=== PATIENT | female | born 1995 | race Caucasian/White ===

== ENCOUNTER 2018-11-24 09:45 | Emergency (ER) | payer OTHER ==
[~2018-11-24] VITALS: Ht 157.5 cm; Wt 76.2 kg
[2018-11-24 09:59] VITALS: BP 142/82
--- NOTE | 2018-11-24 10:04 | NUR ---
PATIENT PRESENTS TO ED WITH c/o lower back pain radiating suprapubic x 6 days with burning pain upon voidiging denies vag dc SKIN IS PINK/WARM/DRY; AAOX4 WITH EVEN AND STEADY GAIT; LUNGS CLEAR BL; HR EVEN AND REGULAR; PT DENIES ANY FEVER, CP, SOB, OR COUGH AT THIS TIME; PATIENT STATES PAIN OF 6/10 AT THIS TIME; VSS; PATIENT POSITIONED FOR COMFORT; HOB ELEVATED; BEDRAILS UP X2; BED DOWN. ER MD MADE AWARE OF PT STATUS.
--- NOTE | 2018-11-24 10:06 | NUR ---
urine cup handed to pt for sample
[2018-11-24 10:25] VITALS: BP 116/74
--- NOTE | 2018-11-24 10:25 | NUR ---
Patient discharged with v/s stable. Written and verbal after care instructions given and explained. Patient alert, oriented and verbalized understanding of instructions. Ambulatory with steady gait. All questions addressed prior to discharge. ID band removed. Patient advised to follow up with PMD. Rx of Pyridium, Cephalexin given. Patient educated on indication of medication including possible reaction and side effects. Opportunity to ask questions provided and answered.
== END 2018-11-24 10:25 | disposition home or self-care (01) ==
LOC: MED 09:45
DX: N39.0 Urinary tract infection, site not specified (principal); R03.0 Elevated blood-pressure reading, without diagnosis of hypertension
CPT/HCPCS: 81002; 81025; 99283

== ENCOUNTER 2018-12-31 17:36 | Emergency (ER) | payer OTHER ==
[~2018-12-31] VITALS: Ht 157.5 cm; Wt 81.6 kg
[2018-12-31 17:40] VITALS: BP 148/123
--- NOTE | 2018-12-31 17:48 | NUR ---
PT AMBULATED TO ER BED 1
--- NOTE | 2018-12-31 17:51 | NUR ---
Isaias ochoa in [facility] - 12/31/18 at 1807 by REGINO PT TX TO ER BED 5
--- NOTE | 2018-12-31 18:15 | NUR ---
PT C/O INTERMITTENT RIGHT LOWER BACK PAIN FOR 1.5 MONTH. PT ALSO HAS NAUSEA AND BURNING URINATION FOR 3 DAYS. PT HAS BEEN CONSTIPATED FOR 2 DAYS; SKIN IS PINK/WARM/DRY; AAOX4 WITH EVEN AND STEADY GAIT; PT DENIES ANY FEVER, CP, SOB, OR COUGH AT THIS TIME; PATIENT STATES PAIN OF 7/10 AT THIS TIME; VSS; PATIENT POSITIONED FOR COMFORT; HOB ELEVATED; BEDRAILS UP X1; BED DOWN. ER MD MADE AWARE OF PT STATUS.
[2018-12-31 18:37] LABS: APPEARANCE,URINE CLEAR (CLEAR); BILIRUBIN,URINE NEGATIVE (NEGATIVE); BLOOD, URINE NEGATIVE (NEGATIVE); COLOR,URINE AMBER (YELLOW); LEUKOCYTE ESTERASE ,URINE NEGATIVE (NEGATIVE); NITRITE, URINE NEGATIVE (NEGATIVE); PH,URINE 6.5 (5.0-9.0); UGLUCOSE NEGATIVE (NEGATIVE)
--- NOTE | 2018-12-31 19:20 | NUR ---
RECEIVED REPORT FROM AM NURSE. PT LAYING IN BED, RR EVEN AND UNLABORED. VSS, REPORTS 7/10 PAIN AT THIS TIME. ALL NEEDS MET.
--- NOTE | 2018-12-31 19:20 | NUR ---
REPORT GIVEN TO KAREN MCKEON.
--- NOTE | 2018-12-31 19:50 | NUR ---
PT TAKEN TO CT
--- NOTE | 2018-12-31 20:05 | NUR ---
PT BACK FROM CT
[2018-12-31 21:35] VITALS: BP 128/81
== END 2018-12-31 21:35 | disposition home or self-care (01) ==
LOC: MED 17:36
DX: K59.00 Constipation, unspecified (principal)
CPT/HCPCS: 74176; 76856; 81003; 81025; 99284; Q0092

== ENCOUNTER 2020-03-01 20:00 | Observation (INO) | payer OTHER ==
[~2020-03-01] VITALS: Ht 160 cm; Wt 83.0 kg
[2020-03-01 20:20] VITALS: BP 127/62
[2020-03-01 21:17] LABS: APPEARANCE,URINE CLEAR (CLEAR); BILIRUBIN,URINE NEGATIVE (NEGATIVE); BLOOD, URINE NEGATIVE (NEGATIVE); COLOR,URINE YELLOW (YELLOW); LEUKOCYTE ESTERASE ,URINE NEGATIVE (NEGATIVE); NITRITE, URINE NEGATIVE (NEGATIVE); UGLUCOSE NEGATIVE (NEGATIVE)
== END 2020-03-01 22:50 | disposition home or self-care (01) ==
LOC: MLD 20:00
PROVIDERS: ADMIT Obstetrics & Gynecology; ATTEND Obstetrics & Gynecology
DX: O9A.212 Injury, poisoning and certain other consequences of external causes complicating pregnancy, second trimester (principal); O26.892 Other specified pregnancy related conditions, second trimester; R10.9 Unspecified abdominal pain; O99.352 Diseases of the nervous system complicating pregnancy, second trimester; G43.909 Migraine, unspecified, not intractable, without status migrainosus; Z3A.27 27 weeks gestation of pregnancy; V49.9XXA Car occupant (driver) (passenger) injured in unspecified traffic accident, initial encounter; Y93.89 Activity, other specified; Y92.410 Unspecified street and highway as the place of occurrence of the external cause
CPT/HCPCS: 76805; 81003; G0378; Q0092

== ENCOUNTER 2020-08-24 13:06 | Emergency (ER) | payer OTHER ==
[~2020-08-24] VITALS: Ht 157.5 cm; Wt 76.2 kg
[2020-08-24 13:16] VITALS: BP 130/80
--- NOTE | 2020-08-24 13:26 | NUR ---
PATIENT AMBULATED TO BED 8.
--- NOTE | 2020-08-24 13:51 | NUR ---
25YO F C/O LEFT CHEST PAIN RADIATING TO L SHOULDER X 1 DAY. PAIN 5/10, PRESSURE-LIKE, LASTING 15-30MINS. DENIES FEVER, COUGH. UPON ASSESSMENT, VSS. HEART RATE NORMAL REGULAR RHYTHM. CLEAR BREATH SOUNDS. NO EDEMA NOTED. PT POSITIONED IN BED COMFORTABLY WITH 2 SIDERAILS UP. ERMD MADE AWARE OF PT STATUS. COVID TESTED POSTIVE 2 MONTHS AGO & NEGATIVE 06/20/20. LMP 2 WEEKS AGO. PMH: ANEMIA AFTER GIVING 3 MONTHS AGO; GESTATIONAL DIABETES MEDS: NONE NKA
[2020-08-24 14:48] LABS: BASOPHILS % (AUTO) 0.4 % (0.0-2.0); EOSINOPHILS # (AUTO) 0.1 K/uL (0-0.4); EOSINOPHILS % (AUTO) 1.1 % (0.0-4.0); HEMATOCRIT 40.4 % (36-48); HEMOGLOBIN 13.8 g/dL (12.0-16.0); LYMPHOCYTES # (AUTO) 1.8 K/uL (2.5-16.5); LYMPHOCYTES % (AUTO) 22.4 % (20.5-51.1); MEAN CORPUSCULAR HEMOGLOBIN 29 pg (27-31); MEAN CORPUSCULAR HGB CONC 34 g/dL (33-37); MEAN CORPUSCULAR VOLUME 84.9 fL (80-94); MONOCYTES # (AUTO) 0.5 K/uL (0.8-1.0); MONOCYTES % (AUTO) 6.6 % (1.7-9.3); NEUTROPHILS # (AUTO) 5.6 K/uL (1.8-7.7); NEUTROPHILS % (AUTO) 69.5 % (42.2-75.2); PLATELET COUNT (AUTO) 371 K/uL (140-450); RED BLOOD CELL COUNT(AUTO) 4.76 MIL/uL (4.20-5.40); RED CELL DISTRIBUTION WIDTH 14.6 % (11.6-13.7); WHITE BLOOD COUNT (AUTO) 8.1 K/uL (4.8-10.8)
[2020-08-24 15:18] LABS: ALBUMIN 4.3 g/dL (3.4-5.0); ANION GAP 12.6 (8-16); CARBON DIOXIDE 26.6 mmol/L (21-32); CREATININE 0.8 mg/dL (0.6-1.3); POTASSIUM 4.2 mmol/L (3.5-5.1); THYROID STIMULATING HORMONE 3.71 uIU/mL (0.34-3.74); TOTAL BILIRUBIN 0.3 mg/dL (0.0-1.0)
[2020-08-24 15:31] VITALS: BP 130/80
--- NOTE | 2020-08-24 15:31 | NUR ---
Patient discharged with v/s stable. Written and verbal after care instructions given and explained. Patient verbalized understanding. Ambulatory with steady gait. All questions addressed prior to discharge. Advised to follow up with PMD.
== END 2020-08-24 15:31 | disposition home or self-care (01) ==
LOC: MED 13:06
DX: R07.89 Other chest pain (principal); D64.9 Anemia, unspecified
CPT/HCPCS: 36415; 80053; 84443; 84484; 85025; 93005; 99284

== ENCOUNTER 2020-12-18 16:09 | Emergency (ER) | payer OTHER ==
[~2020-12-18] VITALS: Ht 160 cm; Wt 81.2 kg
[2020-12-18 16:20] VITALS: BP 148/81
--- NOTE | 2020-12-18 17:09 | NUR ---
PHLEB at bedside for blood draw.
--- NOTE | 2020-12-18 17:09 | NUR ---
Patient ambulated to bed 5. RN evaluating the patient at bedside.
--- NOTE | 2020-12-18 17:15 | NUR ---
25 Y/O F BIB SELF FROM HOME, C/O SYNCOPE EPISODE THAT HAPPENED TODAY AROUND 1200. PT STATES SHE WAS TALKING WITH HER AUNT AND FELT SUDDENLY WEAK AND FATIGUED LIKE SHE WAS GOING TO PASS OUT, WARNED AUNT, AUNT PUT ICE PACK ON HER BACK, PT DOES NOT REMEMBER ANYTHING ELSE. PT ALSO C/O NAUSEA. DENIES PAIN AT THIS TIME. NO HEAD INJURY, FALL OR MOUTH TRAUMA. PMH: GESTATIONAL DIABETES, ANEMIA NKA MED: BIRTHCONTROL
[2020-12-18 17:21] LABS: BASOPHILS % (AUTO) 0.2 % (0.0-2.0); EOSINOPHILS % (AUTO) 0.3 % (0.0-4.0); HEMATOCRIT 44.2 % (36-48); HEMOGLOBIN 15.4 g/dL (12.0-16.0); LYMPHOCYTES # (AUTO) 1.5 K/uL (2.5-16.5); LYMPHOCYTES % (AUTO) 14.9 % (20.5-51.1); MEAN CORPUSCULAR HEMOGLOBIN 32 pg (27-31); MEAN CORPUSCULAR HGB CONC 35 g/dL (33-37); MEAN CORPUSCULAR VOLUME 91.2 fL (80-94); MONOCYTES # (AUTO) 0.3 K/uL (0.8-1.0); NEUTROPHILS # (AUTO) 8.2 K/uL (1.8-7.7); NEUTROPHILS % (AUTO) 81.6 % (42.2-75.2); PLATELET COUNT (AUTO) 394 K/uL (140-450); RED BLOOD CELL COUNT(AUTO) 4.85 MIL/uL (4.20-5.40); RED CELL DISTRIBUTION WIDTH 13.5 % (11.6-13.7); WHITE BLOOD COUNT (AUTO) 10.1 K/uL (4.8-10.8)
[2020-12-18 18:00] LABS: ALBUMIN 4.7 g/dL (3.4-5.0); ANION GAP 12.9 (8-16); CARBON DIOXIDE 25.8 mmol/L (21-32); CREATININE 0.7 mg/dL (0.6-1.3); POTASSIUM 3.7 mmol/L (3.5-5.1); THYROID STIMULATING HORMONE 3.14 uIU/mL (0.34-3.74); TOTAL BILIRUBIN 0.4 mg/dL (0.0-1.0)
[2020-12-18 18:15] VITALS: BP 125/71
== END 2020-12-18 18:16 | disposition home or self-care (01) ==
LOC: MED 16:09
DX: R55 Syncope and collapse (principal); R20.2 Paresthesia of skin; D64.9 Anemia, unspecified
CPT/HCPCS: 36415; 71045; 80053; 84443; 84484; 84702; 85025; 93005; 99285

== ENCOUNTER 2021-05-23 16:12 | Emergency (ER) | payer OTHER ==
[~2021-05-23] VITALS: Ht 157.5 cm; Wt 81.6 kg
[2021-05-23 16:30] VITALS: BP 160/118
--- NOTE | 2021-05-23 16:58 | NUR ---
26 yo f c/o chest discomfort and sob radiating to neck since this am. also report intermittent headache adn tinnitus, right ear x 1 month. no meds taken. lung sounds clear. heart sounds heard, s1 and s2. 7/10 pressure pain. skin warm and dry. denies any recent fever or cough. pmh: none meds: none nka
--- NOTE | 2021-05-23 17:06 | NUR ---
XRAY AT BEDSIDE
--- NOTE | 2021-05-23 17:16 | NUR ---
PT AMBULATED TO RESTROOM, STEADY GAIT
[2021-05-23] MEDS ORDERED: NAPR-54 PO (17:52)
[2021-05-23 18:07] VITALS: BP 128/71
== END 2021-05-23 18:07 | disposition home or self-care (01) ==
LOC: MED 16:12
DX: R07.9 Chest pain, unspecified (principal); R06.02 Shortness of breath
CPT/HCPCS: 71045; 81002; 81025; 93005; 99285; Q0092; 99283

== ENCOUNTER 2021-09-25 21:18 | Emergency (ER) | payer OTHER ==
[~2021-09-25] VITALS: Ht 160 cm; Wt 81.6 kg
[~2021-09-25 21:18] MED LIST: NAPR-54 PO
[2021-09-25 22:11] VITALS: BP 91/46
--- NOTE | 2021-09-25 22:17 | NUR ---
TO LOBBY FOLLOWING TRIAGE
[2021-09-25] MEDS ORDERED: FAMO-92 PO (23:06)
== END 2021-09-25 23:17 | disposition home or self-care (01) ==
LOC: MED 21:18
DX: K25.3 Acute gastric ulcer without hemorrhage or perforation (principal); Z79.899 Other long term (current) drug therapy
CPT/HCPCS: 99282

== ENCOUNTER 2022-04-02 20:52 | Emergency (ER) | payer OTHER ==
[~2022-04-02] VITALS: Ht 160 cm; Wt 83.5 kg
[~2022-04-02 20:52] MED LIST changes: +FAMO-92 PO
[2022-04-02 20:59] VITALS: BP 126/79
--- NOTE | 2022-04-02 21:01 | NUR ---
PT TO LOBBY.
--- NOTE | 2022-04-02 22:40 | NUR ---
PT TAKEN TO BED 12
--- NOTE | 2022-04-02 22:45 | NUR ---
Assume care of pt at this time by Nery JONES, report given by Hayley JONES, pt c/o left lower abd pain, non radiating, denies n/v/d, pt states she was constipated two days ago but took otc medication and had a BM today, pt placed on ct tech, denies any CP or SOB at present time.
[2022-04-02] MEDS ORDERED: KETOROLAC 30 MG/ML VIAL IM ONE (23:25)
[2022-04-02] MEDS ORDERED: HYDROcodone/APAP 5/325 MG 1 TAB TAB PO ONE (23:25)
[2022-04-02 23:26] LABS: APPEARANCE,URINE CLEAR (CLEAR); BILIRUBIN,URINE NEGATIVE (NEGATIVE); BLOOD, URINE NEGATIVE (NEGATIVE); COLOR,URINE YELLOW (YELLOW); LEUKOCYTE ESTERASE ,URINE NEGATIVE (NEGATIVE); NITRITE, URINE NEGATIVE (NEGATIVE); UGLUCOSE NEGATIVE (NEGATIVE)
[2022-04-02 23:30] LABS: BASOPHILS % (AUTO) 0.4 % (0.0-2.0); EOSINOPHILS # (AUTO) 0.2 K/uL (0-0.4); EOSINOPHILS % (AUTO) 2.2 % (0.0-4.0); HEMATOCRIT 41.2 % (36-48); HEMOGLOBIN 14.4 g/dL (12.0-16.0); LYMPHOCYTES # (AUTO) 3.4 K/uL (2.5-16.5); LYMPHOCYTES % (AUTO) 33.5 % (20.5-51.1); MEAN CORPUSCULAR HEMOGLOBIN 31 pg (27-31); MEAN CORPUSCULAR HGB CONC 35 g/dL (33-37); MEAN CORPUSCULAR VOLUME 87.4 fL (80-94); MONOCYTES % (AUTO) 9.7 % (1.7-9.3); NEUTROPHILS # (AUTO) 5.6 K/uL (1.8-7.7); NEUTROPHILS % (AUTO) 54.2 % (42.2-75.2); PLATELET COUNT (AUTO) 397 K/uL (140-450); RED BLOOD CELL COUNT(AUTO) 4.72 MIL/uL (4.20-5.40); RED CELL DISTRIBUTION WIDTH 13.1 % (11.6-13.7); WHITE BLOOD COUNT (AUTO) 10.2 K/uL (4.8-10.8)
[2022-04-02 23:46] LABS: ALBUMIN 3.8 g/dL (3.4-5.0); ANION GAP 13.7 (8-16); CARBON DIOXIDE 28.2 mmol/L (21-32); CREATININE 0.6 mg/dL (0.6-1.3); POTASSIUM 3.9 mmol/L (3.5-5.1); TOTAL BILIRUBIN 0.2 mg/dL (0.0-1.0)
--- NOTE | 2022-04-02 23:59 | NUR ---
Ultrasound at bedside.
[2022-04-03] MEDS ORDERED: NACL 0.9% 1,000 ML IV ONE (00:05)
[2022-04-03] MEDS ORDERED: ACET-10509 PO (02:47)
[2022-04-03] MEDS ORDERED: NAPR-54 PO (02:47)
[2022-04-03 03:00] VITALS: BP 126/71
--- NOTE | 2022-04-03 03:00 | NUR ---
Patient discharged with v/s stable. Written and verbal after care instructions given and explained. Patient alert, oriented and verbalized understanding of instructions. Ambulatory with steady gait. All questions addressed prior to discharge. ID band removed. Patient advised to follow up with PMD. Rx of TYLENOL AND NAPROSYN given. Patient educated on indication of medication including possible reaction and side effects. Opportunity to ask questions provided and answered.
== END 2022-04-03 03:00 | disposition home or self-care (01) ==
LOC: MED 20:52
DX: R10.9 Unspecified abdominal pain (principal); R30.0 Dysuria; R11.0 Nausea; Z79.899 Other long term (current) drug therapy
CPT/HCPCS: 36415; 76856; 80053; 81003; 81025; 85025; 93976; 96361; 96374; 99284; J1885; J7030

== ENCOUNTER 2022-06-11 13:55 | Emergency (ER) | payer OTHER ==
[~2022-06-11] VITALS: Ht 160 cm; Wt 82.6 kg
[~2022-06-11 13:55] MED LIST changes: +ACET-10509 PO
[2022-06-11 14:10] VITALS: BP 138/78
--- NOTE | 2022-06-11 14:17 | NUR ---
PT AMB TO BED 7.
--- NOTE | 2022-06-11 14:25 | NUR ---
27 y/o F BIB self from home c/o mid and left sided chest pain, pressureintermittent, radiating to left rib region. Patient states symptoms feel similar to anxiety episodes in the past. Reports acute onset this morning; Tylenol 0930 without relief to symptoms. 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 Denies recent drug, caffeine use, SOB, cough, fever, chills, nausea, vomiting, headache. Bed locked in lowest position, side rails x 1. PMH: anxiety Meds: Denies NKDA Addendum: 06/11/22 at 1450 by [facility] 27 y/o F BIB self from home c/o mid and left sided chest pain, pressureintermittent, radiating to left rib region. Patient states symptoms feel similar to anxiety episodes in the past. Reports acute onset this morning; Tylenol 0930 without relief to symptoms. 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 Denies recent drug, caffeine use, SOB, cough, fever, chills, nausea, vomiting, headache. Bed locked in lowest position, side rails x 1. PMH: anxiety Meds: sertraline 50mg NKDA
--- NOTE | 2022-06-11 14:30 | NUR ---
Pt transported to [facility] via WC
[2022-06-11] MEDS ORDERED: MECL-303 PO (14:32)
[2022-06-11] MEDS ORDERED: IBUP-2213 PO (14:32)
[2022-06-11] MEDS ORDERED: EMLAC TP (14:32)
--- NOTE | 2022-06-11 14:42 | NUR ---
Pt returned from RAD via WC.
--- NOTE | 2022-06-11 15:09 | NUR ---
Patient discharged with v/s stable. Written and verbal after care instructions given and explained for Acute Costrocondritis, Vertigo. Patient alert, oriented and verbalized understanding of instructions. Ambulatory with steady gait. All questions addressed prior to discharge. ID band removed. Patient advised to follow up with PMD. Rx of Ibuprofen, Meclizine, Lidocaine cream given. Patient educated on indication of medication including possible reaction and side effects. Opportunity to ask questions provided and answered. Copies of EKG, CXR, Work note given to pt.
== END 2022-06-11 15:09 | disposition home or self-care (01) ==
LOC: MED 13:55
DX: M94.0 Chondrocostal junction syndrome [Tietze] (principal); R42 Dizziness and giddiness; F41.9 Anxiety disorder, unspecified; Z79.899 Other long term (current) drug therapy
CPT/HCPCS: 71046; 93005; 99283

== ENCOUNTER 2022-08-01 19:10 | Emergency (ER) | payer OTHER ==
[~2022-08-01] VITALS: Ht 157.5 cm; Wt 83.5 kg
[~2022-08-01 19:10] MED LIST changes: +EMLAC TP; +IBUP-2213 PO; +MECL-303 PO
[2022-08-01 19:17] VITALS: BP 133/78
--- NOTE | 2022-08-01 19:40 | NUR ---
Urine sample collected and sent to lab.
[2022-08-01 19:51] LABS: BASOPHILS # (AUTO) 0.1 K/uL (0.00-0.22); BASOPHILS % (AUTO) 0.7 % (0.0-2.0); EOSINOPHILS # (AUTO) 0.1 K/uL (0-0.4); HEMATOCRIT 40.3 % (36-48); HEMOGLOBIN 14.5 g/dL (12.0-16.0); LYMPHOCYTES # (AUTO) 2.1 K/uL (2.5-16.5); LYMPHOCYTES % (AUTO) 30.9 % (20.5-51.1); MEAN CORPUSCULAR HEMOGLOBIN 32 pg (27-31); MEAN CORPUSCULAR HGB CONC 36 g/dL (33-37); MEAN CORPUSCULAR VOLUME 87.8 fL (80-94); MONOCYTES # (AUTO) 0.6 K/uL (0.8-1.0); NEUTROPHILS % (AUTO) 58.4 % (42.2-75.2); PLATELET COUNT (AUTO) 355 K/uL (140-450); RED BLOOD CELL COUNT(AUTO) 4.59 MIL/uL (4.20-5.40); RED CELL DISTRIBUTION WIDTH 12.7 % (11.6-13.7); WHITE BLOOD COUNT (AUTO) 6.9 K/uL (4.8-10.8)
[2022-08-01 19:54] LABS: APPEARANCE,URINE CLEAR (CLEAR); BILIRUBIN,URINE NEGATIVE (NEGATIVE); BLOOD, URINE NEGATIVE (NEGATIVE); COLOR,URINE YELLOW (YELLOW); LEUKOCYTE ESTERASE ,URINE 1+ (NEGATIVE); NITRITE, URINE NEGATIVE (NEGATIVE); UGLUCOSE NEGATIVE (NEGATIVE)
--- NOTE | 2022-08-01 20:50 | NUR ---
Dr. Thompson examining patient.
[2022-08-01] MEDS ORDERED: KETOROLAC 30 MG/ML VIAL IM ONE (20:55)
[2022-08-01] MEDS ORDERED: ONDANSETRON 4 MG ODT PO ONE (20:55)
[2022-08-01 20:56] LABS: ALBUMIN 4.3 g/dL (3.4-5.0); ANION GAP 15.9 (8-16); CREATININE 0.6 mg/dL (0.6-1.3); POTASSIUM 3.9 mmol/L (3.5-5.1); TOTAL BILIRUBIN 0.2 mg/dL (0.0-1.0)
[2022-08-01 20:59] LABS: RBC,URINE 0-5 /HPF (0-5)
[2022-08-01 21:37] VITALS: BP 133/78
== END 2022-08-01 21:37 | disposition home or self-care (01) ==
LOC: MED 19:10
DX: O26.891 Other specified pregnancy related conditions, first trimester (principal); R10.9 Unspecified abdominal pain; Z3A.11 11 weeks gestation of pregnancy; Z79.899 Other long term (current) drug therapy; Z79.1 Long term (current) use of non-steroidal anti-inflammatories (NSAID)
CPT/HCPCS: 36415; 80053; 81001; 81025; 83690; 85025; 87086; 99283; J1885; Q0162

== ENCOUNTER 2022-12-31 13:46 | Emergency (ER) | payer OTHER ==
[~2022-12-31] VITALS: Ht 160 cm; Wt 80.3 kg
[2022-12-31 14:11] VITALS: BP 135/80
[2022-12-31] MEDS ORDERED: IBUP-2213 PO (15:08)
[2022-12-31] MEDS ORDERED: ONDA-188 SL (15:09)
[2022-12-31] MEDS ORDERED: ACET-10509 PO (15:09)
[2022-12-31 15:34] VITALS: BP 119/67
--- NOTE | 2022-12-31 15:35 | NUR ---
mom given bp aci from tc pain is 1-2/10 and is tolerable and will wait to take any medications, aci bp given, rx explained on motrin and tylenol all questions answered, steady home.
== END 2022-12-31 15:34 | disposition home or self-care (01) ==
LOC: MED 13:46
DX: S60.222A Contusion of left hand, initial encounter (principal); S09.90XA Unspecified injury of head, initial encounter; Z79.899 Other long term (current) drug therapy; V49.88XA Car occupant (driver) (passenger) injured in other specified transport accidents, initial encounter; Y93.89 Activity, other specified; Y92.89 Other specified places as the place of occurrence of the external cause; Y99.8 Other external cause status
CPT/HCPCS: 99282

== ENCOUNTER 2023-01-27 09:17 | Emergency (ER) | payer OTHER ==
[~2023-01-27] VITALS: Ht 162.6 cm; Wt 74.8 kg
[~2023-01-27 09:17] MED LIST changes: +ONDA-188 SL
[2023-01-27 09:43] VITALS: BP 135/74; PULSE 74; RESP 18; TEMP 98.1; O2SAT 98
[2023-01-27 10:32] LABS: BASOPHILS % (AUTO) 0.4 % (0.0-2.0); EOSINOPHILS # (AUTO) 0.1 K/uL (0-0.4); EOSINOPHILS % (AUTO) 1.4 % (0.0-4.0); HEMATOCRIT 39.1 % (36-48); HEMOGLOBIN 13.7 g/dL (12.0-16.0); LYMPHOCYTES # (AUTO) 2.4 K/uL (2.5-16.5); LYMPHOCYTES % (AUTO) 35.3 % (20.5-51.1); MEAN CORPUSCULAR HEMOGLOBIN 32 pg (27-31); MEAN CORPUSCULAR HGB CONC 35 g/dL (33-37); MONOCYTES # (AUTO) 0.5 K/uL (0.8-1.0); NEUTROPHILS # (AUTO) 3.7 K/uL (1.8-7.7); NEUTROPHILS % (AUTO) 54.9 % (42.2-75.2); PLATELET COUNT (AUTO) 316 K/uL (140-450); RED BLOOD CELL COUNT(AUTO) 4.34 MIL/uL (4.20-5.40); RED CELL DISTRIBUTION WIDTH 12.9 % (11.6-13.7); WHITE BLOOD COUNT (AUTO) 6.8 K/uL (4.8-10.8)
--- NOTE | 2023-01-27 10:38 | NUR ---
PATIENT AMBULATED TO ER BED 02
--- NOTE | 2023-01-27 10:43 | NUR ---
PATIENT PRESENTS TO ED WITH RIGHT UPPER QUADRANT ABD PAIN. PAIN RADIATES FROM FROM FRONT OF ABD TO BACK BILATERAL FLANK PAIN. PT STATES FOR 2 DAYS SHES BEEN IN PAIN.DENIES N/V/D; SKIN IS PINK/WARM/DRY; PT STATES SHE HAS PRESSURE IN CHEST.AAOX4 WITH EVEN AND STEADY GAIT; LUNGS CLEAR BL; HR EVEN AND REGULAR; PT DENIES ANY FEVER, SOB, OR COUGH AT THIS TIME; PATIENT STATES PAIN OF 7/10 AT THIS TIME; VSS; PATIENT POSITIONED FOR COMFORT; HOB ELEVATED; BEDRAILS UP X2; BED DOWN. CALL LIGHT WITH IN REACH.ER MD MADE AWARE OF PT STATUS. PMHX MISCARIAGE REMOVAL
[2023-01-27 10:49] VITALS: O2SAT 98
--- NOTE | 2023-01-27 10:55 | NUR ---
ULTRASOUND AT BEDSIDE
[2023-01-27 10:56] LABS: ALBUMIN 3.9 g/dL (3.4-5.0); ANION GAP 10.3 (8-16); CARBON DIOXIDE 28.9 mmol/L (21-32); CREATININE 0.7 mg/dL (0.6-1.3); POTASSIUM 4.2 mmol/L (3.5-5.1); TOTAL BILIRUBIN 0.4 mg/dL (0.0-1.0)
[2023-01-27] MEDS ORDERED: KETOROLAC 15 MG/ML VIAL IM ONE (11:10)
[2023-01-27] MEDS ORDERED: KETOROLAC 15 MG/ML VIAL ONE (11:11)
[2023-01-27 11:18] LABS: APPEARANCE,URINE CLEAR (CLEAR); BILIRUBIN,URINE NEGATIVE (NEGATIVE); BLOOD, URINE NEGATIVE (NEGATIVE); COLOR,URINE YELLOW (YELLOW); LEUKOCYTE ESTERASE ,URINE TRACE (NEGATIVE); NITRITE, URINE NEGATIVE (NEGATIVE); PH,URINE 6.5 (5.0-9.0); UGLUCOSE NEGATIVE (NEGATIVE)
--- NOTE | 2023-01-27 11:36 | NUR ---
PT HAS BEEN MEDICATED PER PROVIDERS ORDERS.
[2023-01-27 11:48] LABS: CALCIUM OXALATE CRYSTALS,UR None Seen /HPF (None Seen); COARSE GRANULAR CASTS,URINE None Seen /LPF (None Seen); FINE GRANULAR CASTS,URINE None Seen /LPF (None Seen); HYALINE CASTS, URINE None Seen /LPF (None Seen); OTHER CASTS, URINE None Seen /LPF (None Seen); OTHER CRYSTALS,URINE None Seen /HPF (None Seen); RBC,URINE 0-5 /HPF (0-5); RED BLOOD CELL CASTS,URINE None Seen /LPF (None Seen); TRICHOMONAS,URINE None Seen /HPF (None Seen); TRIPLE PHOSPHATE CRYSTAL,UR None Seen /HPF (None Seen); URIC ACID CRYSTALS,URINE None Seen /HPF (None Seen); URINE AMORPHOUS URATE None Seen /HPF (None Seen); WAXY CASTS,URINE None Seen /LPF (None Seen); YEAST,URINE None Seen /HPF (None Seen)
[2023-01-27] MEDS ORDERED: ALUMINUM HYD/MAG/SIMETHICONE 30 ML UDC PO ONE (12:00)
[2023-01-27] MEDS ORDERED: FAMOTIDINE 20 MG TAB PO ONE (12:00)
[2023-01-27] MEDS ORDERED: FAMO-90 PO (12:22)
[2023-01-27 12:49] VITALS: BP 135/74; PULSE 74; RESP 18; TEMP 98.1; O2SAT 98
== END 2023-01-27 12:48 | disposition home or self-care (01) ==
LOC: MED 09:17
DX: R10.13 Epigastric pain (principal); R07.89 Other chest pain; Z79.899 Other long term (current) drug therapy
CPT/HCPCS: 36415; 71045; 76705; 80053; 81001; 81025; 83690; 84484; 85025; 93005; 96372; 99285; J1885; Q0092

== ENCOUNTER 2024-04-29 12:14 | Emergency (ER) | payer OTHER ==
[~2024-04-29] VITALS: Ht 157.5 cm; Wt 87.1 kg
[~2024-04-29 12:14] MED LIST changes: -ACET-10509 PO; +ACET500T99 PO; +FAMO-90 PO; +NAPR-337 PO; -NAPR-54 PO
[2024-04-29 12:21] VITALS: BP 122/80; PULSE 87; RESP 16; TEMP 97.2; O2SAT 98
[2024-04-29] MEDS ORDERED: ACET-9496 PO (13:04)
[2024-04-29] MEDS ORDERED: IBUP-2218 PO (13:04)
== END 2024-04-29 13:24 | disposition home or self-care (01) ==
LOC: MED 12:14
DX: R51.9 Headache, unspecified (principal); R07.89 Other chest pain; R42 Dizziness and giddiness; I10 Essential (primary) hypertension; Z79.899 Other long term (current) drug therapy
CPT/HCPCS: 93005; 99283